=== PATIENT | male | born 1940 | race Caucasian/White ===

== ENCOUNTER 2017-03-04 08:27 | Emergency (ER) | payer MEDICARE, BC ==
--- NOTE | 2017-03-04 09:31 | EDM.PDOC ---
ED HPI GENERAL MEDICAL PROBLEM - General Chief Complaint: Genitourinary Problem Stated Complaint: POSSIBLE UTI Time Seen by Provider: 03/04/17 09:16 - History of Present Illness INITIAL COMMENTS - FREE TEXT/NARRATIVE: HISTORY AND PHYSICAL: History of present illness: Patient 76-year-old male presents with concern of frequency and discomfort with urination he recently had a cardiac ablation with complications and had a catheter associated UTI he states his symptoms currently are similarities and no fever chills nausea vomiting no back pain and no other complaints Review of systems: As per history of present illness and below otherwise all systems reviewed and negative. Past medical history: As per history of present illness and as reviewed below otherwise noncontributory. Surgical history: As per history of present illness and as reviewed below otherwise noncontributory. Social history: No reported history of drug or alcohol abuse. Family history: As per history of present illness and as reviewed below otherwise noncontributory. Physical exam: HEENT: Atraumatic, normocephalic, pupils reactive, negative for conjunctival pallor or scleral icterus, mucous membranes moist, throat clear, neck supple, nontender, trachea midline. Lungs: Clear to auscultation, breath sounds equal bilaterally, chest nontender. Heart: S1S2, regular, negative for clicks, rubs, or JVD. Abdomen: Soft, nondistended, nontender. Negative for masses or hepatosplenomegaly. Negative for costovertebral tenderness. Pelvis: Stable nontender. Genitourinary: Deferred. Rectal: Deferred. Extremities: Atraumatic, negative for cords or calf pain. Neurovascular unremarkable. Neuro: Awake, alert, oriented. Cranial nerves II through XII unremarkable. Cerebellum unremarkable. Motor and sensory unremarkable throughout. Exam nonfocal. Diagnostics: CBC CMP UA urine culture EKG Therapeutics: None Impression: Over 1 urinary tract infection #2 history of recent cardiac ablation Definitive disposition and diagnosis as appropriate pending reevaluation and review of above. hypogastric area Pain Score (Numeric/FACES): 7 - Related Data Allergies Allergy/AdvReac Type Severity Reaction Status Date / Time amiodarone Allergy Arrhythmias Verified 03/04/17 08:35 atorvastatin [From Lipitor] Allergy Headache Verified 03/04/17 08:35 lovastatin [From Mevacor] Allergy Headache Verified 03/04/17 08:35 simvastatin [From Zocor] Allergy Headache Verified 03/04/17 08:35 [id number] Reductase Allergy Headache Verified 03/04/17 08:35 Inhibitor Home Meds: Home Meds Apixaban [Eliquis] 5 mg PO BID 03/04/17 [History] Aspirin [Beto Chewable] 81 mg PO DAILY 03/04/17 [History] Calcium Phosphate Trib/Vit D3 [Citracal + D3 Gummies] 1 tab PO DAILY 03/04/17 [ History] Furosemide 40 mg PO DAILY 03/04/17 [History] Levothyroxine [Synthroid] 100 mcg PO DAILY 03/04/17 [History] Lisinopril 2.5 mg PO BEDTIME 03/04/17 [History] Multivitamin/Iron/Folic Acid [Centrum Complete Multivit] 1 tab PO DAILY [History] Nitroglycerin 0.4 mg SL ASDIRECTED PRN 03/04/17 [History] Omeprazole 20 mg PO DAILY 03/04/17 [History] oxyCODONE 5 mg PO ASDIRECTED PRN 03/04/17 [History] Past Medical History - Past Health History Medical/Surgical History: Denies Medical/Surgical History HEENT History: Reports: Impaired Vision Other HEENT History: wears glasses Cardiovascular History: Reports: Hypertension Gastrointestinal History: Reports: GERD Genitourinary History: Reports: UTI, Recurrent Musculoskeletal History: Reports: Back Pain, Chronic Endocrine/Metabolic History: Reports: Hypothyroidism Social & Family History - Family History Family Medical History: Noncontributory - Tobacco Use Smoking Status *Q: Never Smoker - Recreational Drug Use Recreational Drug Use: No ED ROS GENERAL - Review of Systems Review Of Systems: ROS reveals no pertinent complaints other than HPI. ED EXAM, GENERAL - Physical Exam Exam: See Below (See dictation) Course - Vital Signs Last Recorded V/S: Last Vital Signs Temp 36.1 C 03/04/17 08:38 Pulse 96 03/04/17 08:38 Resp 18 03/04/17 08:38 BP 132/65 03/04/17 08:38 Pulse Ox 95 03/04/17 08:38 - Orders/Labs/Meds Orders: Active Orders 24 hr Category Date Time Status EKG 12 Lead [EKG Documentation Completion] [RC] STAT Care 03/04/17 08:48 Active CBC WITH AUTO DIFF [HEME] Stat Lab 03/04/17 09:41 Received COMPREHENSIVE METABOLIC PN,CMP [CHEM] Stat Lab 03/04/17 09:41 Received CULTURE URINE [RM] Stat Lab 03/04/17 08:30 Received Labs: Laboratory Tests 03/04/17 Range/Units 08:30 Urine Color YELLOW Urine Appearance SLT CLOUDY Urine pH 5.5 (5.0-8.0) Ur Specific [place] 1.020 (1.001-1.035) Urine Protein 100 (NEGATIVE) mg/dL Urine Glucose (UA) NEGATIVE (NEGATIVE) mg/dL Urine Ketones NEGATIVE (NEGATIVE) mg/dL Urine Occult Blood MODERATE (NEGATIVE) Urine Nitrite POSITIVE H (NEGATIVE) Urine Bilirubin NEGATIVE (NEGATIVE) Urine Urobilinogen 0.2 (<2.0) EU/dL Ur Leukocyte Esterase LARGE (NEGATIVE) Urine RBC 1-3 (0-2/HPF) Urine WBC 80-100 (0-5/HPF) Ur Epithelial Cells RARE (NONE-FEW) Amorphous Sediment RARE (NEGATIVE) Urine Bacteria 2+ H (NEGATIVE) Departure - Departure Time of Disposition: 09:53 Disposition: Home, Self-Care 01 Condition: Good Clinical Impression: UTI, Urinary tract infectious disease - Discharge Information Forms: ED Department Discharge Additional Instructions: The following information is given to patients seen in the emergency department who are being discharged to home. This information is to outline your options for follow-up care. We provide all patients seen in our emergency department with a follow-up referral. The need for follow-up, as well as the timing and circumstances, are variable depending upon the specifics of your emergency department visit. If you don't have a primary care physician on staff, we will provide you with a referral. We always advise you to contact your personal physician following an emergency department visit to inform them of the circumstance of the visit and for follow-up with them and/or the need for any referrals to a consulting specialist. The emergency department will also refer you to a specialist when appropriate. This referral assures that you have the opportunity for followup care with a specialist. All of these measure are taken in an effort to provide you with optimal care, which includes your followup. Under all circumstances we always encourage you to contact your private physician who remains a resource for coordinating your care. When calling for followup care, please make the office aware that this follow-up is from your recent emergency room visit. If for any reason you are refused follow-up, please contact the [facility] emergency department at and asked to speak to the emergency department charge nurse. Cipro Pyridium as prescribed follow-up primary medical doctor 1-2 days return as needed as discussed - My Orders Last 24 Hours: My Active Orders 03/04/17 08:30 CULTURE URINE [RM] Stat 03/04/17 08:48 EKG 12 Lead [EKG Documentation Completion] [RC] STAT 03/04/17 09:41 CBC WITH AUTO DIFF [HEME] Stat COMPREHENSIVE METABOLIC PN,CMP [CHEM] Stat - Assessment/Plan Last 24 Hours: My Active Orders 03/04/17 08:30 CULTURE URINE [RM] Stat 03/04/17 08:48 EKG 12 Lead [EKG Documentation Completion] [RC] STAT 03/04/17 09:41 CBC WITH AUTO DIFF [HEME] Stat COMPREHENSIVE METABOLIC PN,CMP [CHEM] Stat
[2017-03-04 10:23] LABS: CHLORIDE,CL 105 mmol/L (98-110); SODIUM,NA 135 mmol/L (136-146)
[2017-03-04 11:09] VITALS: BP 132/85
== END 2017-03-04 11:05 | disposition home or self-care (01) ==
LOC: MW.ED 08:27
DX: N39.0 Urinary tract infection, site not specified (principal); I10 Essential (primary) hypertension; K21.9 Gastro-esophageal reflux disease without esophagitis; E03.9 Hypothyroidism, unspecified; Z79.82 Long term (current) use of aspirin; Z79.899 Other long term (current) drug therapy; Z88.8 Allergy status to other drugs, medicaments and biological substances
CPT/HCPCS: 36415; 80053; 81001; 85025; 87086; 87088; 87186; 93005; 99282; 99283-25

== ENCOUNTER 2018-11-02 09:01 | Emergency (ER) | payer MEDICARE, BC ==
--- NOTE | 2018-11-02 09:33 | EDM.PDOC ---
ED HPI GENERAL MEDICAL PROBLEM - General Chief Complaint: Skin Complaint Stated Complaint: INFECTION Time Seen by Provider: 11/02/18 09:17 - History of Present Illness INITIAL COMMENTS - FREE TEXT/NARRATIVE: HISTORY AND PHYSICAL: History of present illness: The patient is a 78-year-old male with a history of CABG 2 in the past bovine valve replacement ablation for atrial fibrillation and a recent pacemaker placed in [facility] several weeks ago who presents with complaints of discomfort in the pacemaker site area that just started yesterday. He says that he is not supposed to move his arm very much and is supposed to continue to wear a sling for at least one month and he is on Eliquis. Patient says he has not been doing much activity with his arm because the surgeon told him to be very limited due to his anticoagulation therapy and he says he had a slight cold last week but that is improving. He's had no fevers chills nausea vomiting or cardiac chest pain just discomfort at the pacemaker site. He said no neurosensory changes in his extremities and he was most to take off the dressing for his pacemaker tomorrow and they were concerned there might be an infection. Review of systems: As per history of present illness and below otherwise all systems reviewed and negative. Past medical history: As per history of present illness and as reviewed below otherwise noncontributory. Surgical history: As per history of present illness and as reviewed below otherwise noncontributory. Social history: No reported history of drug or alcohol abuse. Family history: As per history of present illness and as reviewed below otherwise noncontributory. Physical exam: General: Well-developed well-nourished man who is nontoxic and vital signs are reviewed by me. HEENT: Atraumatic, normocephalic, pupils reactive, negative for conjunctival pallor or scleral icterus, mucous membranes moist, throat clear, neck supple, nontender, trachea midline. Lungs: Clear to auscultation, breath sounds equal bilaterally, chest nontender. The pacemaker site has a dressing on which I have removed and replaced during my exam and there is no erythema swelling or soft tissue changes. There is some resolving ecchymosis in his axillary area and there is no discrete tenderness crepitus or deformities. Heart: S1S2, regular, negative for clicks, rubs, or JVD. Abdomen: Soft, nondistended, nontender. NABS Pelvis: Stable nontender. Genitourinary: Deferred. Rectal: Deferred. Extremities: Atraumatic, negative for cords or calf pain. Neurovascular unremarkable. Neuro: Awake, alert, oriented. Cranial nerves II through XII unremarkable. Cerebellum unremarkable. Motor and sensory unremarkable throughout. Exam nonfocal. Diagnostics: EKG chest x-ray CBC CMP INR troponin Therapeutics: [] Discussed all testing results with the patient and at bedside a comfortable with discharge home. I advised him on reasons to return Impression: Chest wall pain status post pacemaker placement stable Definitive disposition and diagnosis as appropriate pending reevaluation and review of above. - Related Data Allergies Allergy/AdvReac Type Severity Reaction Status Date / Time amiodarone Allergy Arrhythmias Verified 11/02/18 09:12 atorvastatin [From Lipitor] Allergy Headache Verified 11/02/18 09:12 lovastatin [From Mevacor] Allergy Headache Verified 11/02/18 09:12 simvastatin [From Zocor] Allergy Headache Verified 11/02/18 09:12 Qsgdfiy-Gym-Kdz Reductase Allergy Headache Verified 11/02/18 09:12 Inhibitor Home Meds: Home Meds Apixaban [Eliquis] 5 mg PO BID 03/04/17 [History] Aspirin [Beto Chewable] 81 mg PO DAILY 03/04/17 [History] Calcium Phosphate Trib/Vit D3 [Citracal + D3 Gummies] 1 tab PO DAILY 03/04/17 [ History] Furosemide 40 mg PO DAILY 03/04/17 [History] Levothyroxine [Synthroid] 100 mcg PO DAILY 03/04/17 [History] Lisinopril 2.5 mg PO BEDTIME 03/04/17 [History] Multivitamin/Iron/Folic Acid [Centrum Complete Multivit] 1 tab PO DAILY [History] Nitroglycerin 0.4 mg SL ASDIRECTED PRN 03/04/17 [History] Omeprazole 20 mg PO DAILY 03/04/17 [History] Colesevelam [Welchol] 625 mg PO DAILY 11/02/18 [History] Past Medical History - Past Health History Medical/Surgical History: Denies Medical/Surgical History HEENT History: Reports: Impaired Vision Other HEENT History: wears glasses Cardiovascular History: Reports: Hypertension Gastrointestinal History: Reports: GERD Genitourinary History: Reports: UTI, Recurrent Musculoskeletal History: Reports: Back Pain, Chronic Endocrine/Metabolic History: Reports: Hypothyroidism - Past Surgical History Cardiovascular Surgical History: Reports: Pacer Other Cardiovascular Surgeries/Procedures: valve replacement 4 months ago had pace maker inserted last week Wed and obligation for a fib Social & Family History - Family History Family Medical History: Noncontributory - Tobacco Use Smoking Status *Q: Never Smoker Second Hand Smoke Exposure: No - Caffeine Use Caffeine Use: Reports: Soda - Recreational Drug Use Recreational Drug Use: No ED ROS GENERAL - Review of Systems Review Of Systems: ROS reveals no pertinent complaints other than HPI. ED EXAM, SKIN/RASH Exam: See Below (see dictation) Course - Vital Signs Last Recorded V/S: Last Vital Signs Temp 36.1 C 11/02/18 09:10 Pulse 83 11/02/18 09:10 Resp 20 11/02/18 09:10 BP 124/78 11/02/18 09:10 Pulse Ox 92 L 11/02/18 09:10 - Orders/Labs/Meds Orders: Active Orders 24 hr Category Date Time Status EKG 12 Lead [EKG Documentation Completion] [RC] STAT Care 11/02/18 09:06 Active Labs: Laboratory Tests 11/02/18 11/02/18 11/02/18 Range/Units 09:40 09:40 09:40 WBC 8.22 (4.0-11.0) K/uL RBC 5.10 (4.50-5.90) M/uL Hgb 16.2 (13.0-17.0) g/dL Hct 47.1 (38.0-50.0) % MCV 92.4 (80.0-98.0) fL MCH 31.8 (27.0-32.0) pg MCHC 34.4 (31.0-37.0) g/dL RDW Std Deviation 46.7 (28.0-62.0) fl RDW Coeff of Johnson 14 (11.0-15.0) % Plt Count 177 (150-400) K/uL MPV 9.50 (7.40-12.00) fL Neut % (Auto) 68.1 (48.0-80.0) % Lymph % (Auto) 19.1 (16.0-40.0) % [place] % (Auto) 8.2 (0.0-15.0) % Eos % (Auto) 4.1 (0.0-7.0) % Baso % (Auto) 0.5 (0.0-1.5) % Neut # (Auto) 5.6 (1.4-5.7) K/uL Lymph # (Auto) 1.6 (0.6-2.4) K/uL [place] # (Auto) 0.7 (0.0-0.8) K/uL Eos # (Auto) 0.3 (0.0-0.7) K/uL Baso # (Auto) 0.0 (0.0-0.1) K/uL Nucleated RBC % 0.0 /100WBC Nucleated RBCs # 0 K/uL INR 1.10 Sodium 135 L (136-148) mmol/L Potassium 4.3 (3.5-5.1) mmol/L Chloride 103 (98-107) mmol/L Carbon Dioxide 21.8 (21.0-32.0) mmol/L BUN 21 H (7.0-18.0) mg/dL Creatinine 1.2 (0.8-1.3) mg/dL Est Cr Clr Drug Dosing 55.69 mL/min Estimated GFR (MDRD) 58.6 ml/min Glucose 127 H (74-106) mg/dL Calcium 8.4 L (8.5-10.1) mg/dL Total Bilirubin 0.4 (0.2-1.0) mg/dL AST 15 (15-37) IU/L ALT 28 (14-63) IU/L Alkaline Phosphatase 83 (46-116) U/L Troponin I < 0.050 (0.000-0.056) ng/mL Total Protein 7.2 (6.4-8.2) g/dL Albumin 3.1 L (3.4-5.0) g/dL Globulin 4.1 H (2.6-4.0) g/dL Albumin/Globulin Ratio 0.8 L (0.9-1.6) Departure - Departure Time of Disposition: 10:44 Disposition: Home, Self-Care 01 Condition: Good Clinical Impression: Chest wall pain following surgery - Discharge Information Referrals: Rob Bailey MD [Primary Care Provider] - Forms: ED Department Discharge Additional Instructions: The following information is given to patients seen in the emergency department who are being discharged to home. This information is to outline your options for follow-up care. We provide all patients seen in our emergency department with a follow-up referral. The need for follow-up, as well as the timing and circumstances, are variable depending upon the specifics of your emergency department visit. If you don't have a primary care physician on staff, we will provide you with a referral. We always advise you to contact your personal physician following an emergency department visit to inform them of the circumstance of the visit and for follow-up with them and/or the need for any referrals to a consulting specialist. The emergency department will also refer you to a specialist when appropriate. This referral assures that you have the opportunity for followup care with a specialist. All of these measure are taken in an effort to provide you with optimal care, which includes your followup. Under all circumstances we always encourage you to contact your private physician who remains a resource for coordinating your care. When calling for followup care, please make the office aware that this follow-up is from your recent emergency room visit. If for any reason you are refused follow-up, please contact the [facility] emergency department at and ask to speak to the emergency department charge nurse. [facility] Primary care- Internal Medicine and Family [place] [phone] Please continue to follow all directions given to you after your surgery and connect with your provider for follow-up as per their schedule. Return to ER as needed as discussed. - My Orders Last 24 Hours: My Active Orders 11/02/18 09:06 EKG 12 Lead [EKG Documentation Completion] [RC] STAT - Assessment/Plan Last 24 Hours: My Active Orders 11/02/18 09:06 EKG 12 Lead [EKG Documentation Completion] [RC] STAT
[2018-11-02 10:14] LABS: CHLORIDE,CL 103 mmol/L (98-107); SODIUM,NA 135 mmol/L (136-148)
--- NOTE | 2018-11-02 10:22 | CR ---
INDICATION: Feverish. Recently had pace maker inserted Indication: Fever. Technique: Chest one view. Comparison: None. Findings: Postoperative changes of a median sternotomy. AVR. Left subclavian transvenous pacemaker device. Leads are continuous, and in the expected location of the right atrium and right ventricle. There is no acute airspace disease or pneumothorax. Central airway is normal. Minimal atelectasis or scar adjacent to the left heart border. Impression: No acute airspace disease. Dictated by Jarad Brumfield MD @ 11/02/2018 10:21:19 AM Dictated by: Jarad Brumfield MD @ 11/02/2018 10:21:27 (Electronically Signed)
[2018-11-02 12:42] VITALS: BP 125/74
== END 2018-11-02 12:42 | disposition home or self-care (01) ==
LOC: MW.ED 09:01
DX: R07.89 Other chest pain (principal); I10 Essential (primary) hypertension; K21.9 Gastro-esophageal reflux disease without esophagitis; Z95.1 Presence of aortocoronary bypass graft; Z95.0 Presence of cardiac pacemaker; Z88.8 Allergy status to other drugs, medicaments and biological substances; Z79.899 Other long term (current) drug therapy; Z79.82 Long term (current) use of aspirin
CPT/HCPCS: 36415; 71045; 71045-26; 80053; 84484; 85025; 85610; 93005; 99283; 99284-25